=== PATIENT | male | born 1945 | race Caucasian/White ===

== ENCOUNTER 2024-05-25 19:20 | Emergency (ER) | payer MEDICARE, BC, SELFPAY ==
[2024-05-25 19:27] VITALS: BP 153/83; PULSE 62; TEMP 36.4; O2SAT 96; BMI 175.3
[2024-05-25] MEDS: FAMOTIDINE 20 MG TABLET 40 MG PO (19:48)
[2024-05-25] MEDS: DIPHENHYDRAMINE HCL 25 MG CAPSULE PO (19:48)
[2024-05-25] MEDS: DEXAMETHASONE SOD PHOS 10 MG/ML VIAL PO (19:48)
--- NOTE | 2024-05-25 19:53 | ED.GENADUL1 ---
HPI HPI - General Adult General Chief complaint: Allergic Reaction Stated complaint: STING - BEE Time Seen by Provider: 05/25/24 19:33 Source: patient Mode of arrival: walk-in Limitations: no limitations History of Present Illness HPI narrative: 78-year-old male presents here with chief complaint of insect sting to his right hand. He is stung between the second and third digit in the webspace. Soft tissue swelling noted. Patient states he stopped emergency room earlier today and decided to leave. He went home and used baking soda and ice on his hand. His hand has more swelling dorsal aspect. He is able to move his fingers. 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 He states he took Tylenol prior to arrival. Related Data Home Medications ?Medication ?Instructions ?Recorded ?Confirmed No Known Home Medications 05/25/24 05/25/24 Allergies Allergy/AdvReac Type Severity Reaction Status Date / Time Penicillins Allergy Unknown Verified 05/25/24 19:34 Opioid HPI Opioid Management Most Recent Opioid Data: No Data to Display Review of Systems ROS Narrative All Systems are negative except as noted/marked.All systems reviewed and otherwise negative PFSH PFSH Social History Little interest or pleasure in doing things: not at all Feeling down, depressed, or hopeless: not at all Exam Narrative Exam Narrative: Nurses note and vital signs reviewed and patient is not hypoxic. General: The patient appears well and in no apparent distress. Patient is resting comfortably on cart. Skin: Warm, dry, no pallor noted. Head: Normocephalic, atraumatic Eye: Normal conjunctiva, no drainage, EOMI. PERRL Ears, Nose, Mouth, and Throat: oral mucosa is moist. Nares patent. Mouth without vesicles. Ear canals patent. Tm's without Erythema Cardiovascular: Regular Rate and Rhythm Respiratory: Patient is in no distress, no accessory muscle use, lungs are clear to auscultation, no wheezing, rales or rhonchi Musculoskeletal: edema Right hand dorsal aspect neurovascularly intact, status post insect sting remainder of extremities unremarkable. Neurological: A&O x4, normal speech Psychiatric: Cooperative Constitutional Vital Signs, click to edit/add: Last Vital Signs Temp 97.6 F 05/25/24 19:27 Pulse 55 L 05/25/24 20:20 Resp 18 05/25/24 20:20 BP 158/84 H 05/25/24 20:20 Pulse Ox 98 05/25/24 20:20 O2 Del Method Room Air 05/25/24 19:27 Course Vital Signs Vital signs: Vital Signs Temperature 97.6 F 05/25/24 19:27 Pulse Rate 62 05/25/24 19:27 Respiratory Rate 18 05/25/24 19:27 Blood Pressure 153/83 H 05/25/24 19:27 Pulse Oximetry 96 05/25/24 19:27 Oxygen Delivery Method Room Air 05/25/24 19:27 Temperature 97.6 F 05/25/24 19:27 Pulse Rate 55 L 05/25/24 20:20 Respiratory Rate 18 05/25/24 20:20 Blood Pressure 158/84 H 05/25/24 20:20 Pulse Oximetry 98 05/25/24 20:20 Oxygen Delivery Method Room Air 05/25/24 19:27 Medical Decision Making MDM Narrative Medical decision making narrative: 78-year-old male presents here with chief complaint of insect sting to his right hand. He is stung between the second and third digit in the webspace. Soft tissue swelling noted. Patient states he stopped emergency room earlier today and decided to leave. He went home and used baking soda and ice on his hand. His hand has more swelling dorsal aspect. He is able to move his fingers. 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 He states he took Tylenol prior to arrival. Here chief complaint soft tissue swelling allergic reaction status post bee sting. Patient was medicated with Benadryl Decadron and Pepcid. Patient told to use ice and elevation at home. Follow-up primary care physician. Patient showed no signs of anaphylactic reaction denied any difficulty swallowing or breathing. He has not had an anaphylactic reaction in the past. He was watched here for 1 hour after medications. Patient felt comfortable going home Differential Diagnosis Differential Diagnosis: bee sting Medical Records Medical records reviewed: Yes I reviewed the patient's medical records Lab Data Lab results reviewed: Yes I reviewed the patient's lab results Discharge Plan Discharge Chief Complaint: Allergic Reaction Clinical Impression: Bee sting reaction Patient Disposition: Home, Self-Care Time of Disposition Decision: 20:15 Condition: Good Prescriptions / Home Meds: No Action No Known Home Medications Print Language: Latvian Instructions: Insect Bite or Sting (ED) Additional Instructions: May use benadryl every 4 hours as needed for itching. Follow up with PCP if no improvement. Referrals: Isak Baker DO [Primary Care Provider] - 1 week Discharge Date/Time: 05/25/24 20:23
[2024-05-25 20:20] VITALS: BP 158/84; PULSE 55; O2SAT 98
== END 2024-05-25 20:23 | disposition home or self-care (01) ==
PROVIDERS: Emergency Provider Internal Medicine; PCP Family Medicine
DX: T63.441A Toxic effect of venom of bees, accidental (unintentional), initial encounter (principal)
CPT/HCPCS: 99283; J1100